=== PATIENT | female | born 1940 | race Caucasian/White ===

== ENCOUNTER 2020-10-01 01:12 | Emergency (ER) | payer MEDICARE ==
--- NOTE | 2020-10-01 01:41 | EDM.PDOC ---
ED HPI GENERAL MEDICAL PROBLEM - General Chief Complaint: Chest Pain Stated Complaint: [facility] Time Seen by Provider: 10/01/20 01:36 Source of Information: Reports: Patient, EMS History Limitations: Reports: No Limitations - History of Present Illness INITIAL COMMENTS - FREE TEXT/NARRATIVE: pt awoke from a sound sleep with very severe chest pain. She got quite sweaty at tht time. She did change positions in order to get comfortable. She did not feel sob and she did not vomit. She did take 5 low dose asa. She did not feel like her heart was racing. She has never had pain like this in the past. She did not feel belchy. She has no histoy of cardiac disease. Onset: Today, Sudden Duration: Hour(s): Location: Reports: Chest, Generalized Associated Symptoms: Reports: Chest Pain, Diaphoresis, Weakness - Related Data Allergies Allergy/AdvReac Type Severity Reaction Status Date / Time Sulfa (Sulfonamide Allergy Hives Verified 10/01/20 01:22 Antibiotics) Home Meds: Home Meds Aspirin 5 tab PO ASDIRECTED 10/01/20 [History] Biotin 10 mg PO DAILY 10/01/20 [History] Famotidine 40 mg PO DAILY 10/01/20 [History] Levothyroxine 12.5 mcg PO DAILY 10/01/20 [History] Losartan [Cozaar] 50 mg PO DAILY 10/01/20 [History] Multivitamin 1 tab PO DAILY 10/01/20 [History] Propranolol [Inderal] 20 mg PO DAILY 10/01/20 [History] ED ROS GENERAL - Review of Systems Review Of Systems: See Below Constitutional: Reports: Weakness HEENT: Reports: No Symptoms Respiratory: Reports: No Symptoms, Cough Cardiovascular: Reports: Chest Pain Endocrine: Reports: No Symptoms GI/Abdominal: Reports: No Symptoms : Reports: No Symptoms Musculoskeletal: Reports: No Symptoms Skin: Reports: No Symptoms ED EXAM, GENERAL - Physical Exam Exam: See Below Free Text/Narrative:: pt woke up from a sound sleep and felt very severe chest pain. She states this was all over her chest and she just could not get comfortable. Exam Limited By: No Limitations General Appearance: Alert, No Apparent Distress, Anxious, Other (pt was comfortable on arrival. Her pain had gone down to a 3 and a sray of nitro took that away. ) Ears: Normal TMs Nose: Normal Inspection Throat/Mouth: Normal Inspection Head: Atraumatic Neck: Normal Inspection Cardiovascular: Regular Rate, Rhythm GI/Abdominal: Soft, Non-Tender (Female) Exam: Deferred Rectal (Female) Exam: Deferred Back Exam: Normal Inspection Extremities: No Pedal Edema Neurological: Alert, Oriented, Normal Cognition Course - Vital Signs Last Recorded V/S: Last Vital Signs Temp 36.6 C 10/01/20 01:25 Pulse 74 10/01/20 01:25 Resp 15 10/01/20 01:25 BP 168/79 H 10/01/20 01:25 Pulse Ox 96 10/01/20 01:25 - Orders/Labs/Meds Orders: Active Orders 24 hr Category Date Time Status EKG Documentation Completion [RC] ASDIRECTED Care 10/01/20 01:17 Active EKG 12 Lead [EK] Routine Ther 10/01/20 01:17 Ordered Labs: Laboratory Tests 10/01/20 10/01/20 10/01/20 Range/Units 00:25 00:25 00:25 WBC 9.7 (4.5-11.0) K/uL RBC 4.43 (3.30-5.50) M/uL Hgb 12.4 (12.0-15.0) g/dL Hct 40.0 (36.0-48.0) % MCV 90 (80-98) fL MCH 28 (27-31) pg MCHC 31 L (32-36) % Plt Count 332 (150-400) K/uL Neut % (Auto) 58 (36-66) % Lymph % (Auto) 27 (24-44) % [place] % (Auto) 12 H (2-6) % Eos % (Auto) 3 (2-4) % Baso % (Auto) 0 (0-1) % Sodium 137 L (140-148) mmol/L Potassium 3.9 (3.6-5.2) mmol/L Chloride 102 (100-108) mmol/L Carbon Dioxide 27 (21-32) mmol/L Anion Gap 11.9 (5.0-14.0) mmol/L BUN 13 (7-18) mg/dL Creatinine 1.1 H (0.6-1.0) mg/dL Est Cr Clr Drug Dosing 29.75 mL/min Estimated GFR (MDRD) 48 L (>60) Glucose 119 H (74-106) mg/dL Calcium 8.5 (8.5-10.1) mg/dL Total Bilirubin 0.6 (0.2-1.0) mg/dL AST 164 H (15-37) U/L ALT 68 (12-78) U/L Alkaline Phosphatase 103 (46-116) U/L Troponin I < 0.017 (0.000-0.056) ng/mL Total Protein 6.9 (6.4-8.2) g/dL Albumin 3.1 L (3.4-5.0) g/dL Globulin 3.8 H (2.3-3.5) g/dL Albumin/Globulin Ratio 0.8 L (1.2-2.2) 10/01/20 Range/Units 05:00 WBC (4.5-11.0) K/uL RBC (3.30-5.50) M/uL Hgb (12.0-15.0) g/dL Hct (36.0-48.0) % MCV (80-98) fL MCH (27-31) pg MCHC (32-36) % Plt Count (150-400) K/uL Neut % (Auto) (36-66) % Lymph % (Auto) (24-44) % [place] % (Auto) (2-6) % Eos % (Auto) (2-4) % Baso % (Auto) (0-1) % Sodium (140-148) mmol/L Potassium (3.6-5.2) mmol/L Chloride (100-108) mmol/L Carbon Dioxide (21-32) mmol/L Anion Gap (5.0-14.0) mmol/L BUN (7-18) mg/dL Creatinine (0.6-1.0) mg/dL Est Cr Clr Drug Dosing mL/min Estimated GFR (MDRD) (>60) Glucose (74-106) mg/dL Calcium (8.5-10.1) mg/dL Total Bilirubin (0.2-1.0) mg/dL AST (15-37) U/L ALT (12-78) U/L Alkaline Phosphatase (46-116) U/L Troponin I < 0.017 (0.000-0.056) ng/mL Total Protein (6.4-8.2) g/dL Albumin (3.4-5.0) g/dL Globulin (2.3-3.5) g/dL Albumin/Globulin Ratio (1.2-2.2) - Re-Assessments/Exams Free Text/Narrative Re-Assessment/Exam: 10/01/20 05:40 pt had a normal trop and a second trop was ordered 3 hours later that was neg. Her chest xray did reveal a new nodule and this will be evaluated with a cat scan as a outpt. p will return for a lexiscan. Departure - Departure Time of Disposition: 05:41 Disposition: Home, Self-Care 01 Clinical Impression: Chest pain at rest Referrals: PCP,None [Primary Care Provider] - Forms: ED Department Discharge Care Plan Goals: rtc for a lexiscan and a cat scan with contrast to evaluate a new rt sided nodule in the rt chest. rtc if pt should have recurrent chest pain. appt set up with Marian Angel to follow up on the studies. Sepsis Event Note (ED) - Focused Exam Vital Signs: Vital Signs Temp Pulse Resp BP Pulse Ox 10/01/20 01:25 36.6 C 74 15 168/79 H 96 - My Orders Last 24 Hours: My Active Orders 10/01/20 01:17 EKG Documentation Completion [RC] ASDIRECTED EKG 12 Lead [EK] Routine - Assessment/Plan Last 24 Hours: My Active Orders 10/01/20 01:17 EKG Documentation Completion [RC] ASDIRECTED EKG 12 Lead [EK] Routine
--- NOTE | 2020-10-01 02:21 | CRLCR ---
INDICATION: Shortness of breath TECHNIQUE: Chest radiograph 1 view COMPARISON: CT 04/04/2020 FINDINGS: Mediastinum: The mediastinum is normal in appearance. The heart silhouette is normal in size and morphology. Lung: There is a new nodular density in right mid lung zone measuring 1.8 cm. No sign of pleural effusion seen. No pneumothorax is identified. Bone and Soft tissue: Unremarkable for age. IMPRESSION: 1. There is a new nodular density in right mid lung zone measuring 1.8 cm. Further evaluation chest CT is recommended. Dictated by Bijan Canela MD @ 10/01/2020 2:20:44 AM Dictated by: Bijan Canela MD @ 10/01/2020 02:20:49 (Electronically Signed)
== END 2020-10-01 05:59 | disposition home or self-care (01) ==
LOC: JP.ED 01:12
DX: R07.9 Chest pain, unspecified (principal); Z88.2 Allergy status to sulfonamides; Z79.899 Other long term (current) drug therapy
CPT/HCPCS: 36415; 71045; 80053; 84484; 85025; 93005; 93010; 99284; 99285-25